=== PATIENT | female | born 1995 | race Caucasian/White ===

== ENCOUNTER 2019-02-27 06:19 | Emergency (ER) | payer BC, MEDICAID, OTHER ==
[~2019-02-27] VITALS: Ht 160 cm; Wt 56.0 kg
--- NOTE | 2019-02-27 07:36 | NUR ---
PT WAS ANSWERING QUESTIONS AND FOLLOWING COMMANDS UPON ARRIVAL, PT NOW HAS EYES CLOSED AND IS NOT ANSWERING QUESTIONS BUT DID ALLOW LABS TO BE DRAWN PER ORDERS, SO CONTINUES TO BE AT BEDSIDE PT IS IN CUSTODY.
[2019-02-27 07:48] LABS: BASOPHILS % (AUTO) 0.4 % (0-1); EOSINOPHILS % (AUTO) 0.2 % (0-6); HEMATOCRIT 40.9 % (35.0-45.0); HEMOGLOBIN 13.9 g/dl (12.0-16.0); LYMPHOCYTES # (AUTO) 0.8 X10'3 (1.1-4.8); LYMPHOCYTES % (AUTO) 6.6 % (21-51); MEAN CORPUSCULAR HEMOGLOBIN 30.8 PG (27.0-31.0); MEAN CORPUSCULAR HGB CONC 34.1 g/dL (33.0-36.5); MEAN CORPUSCULAR VOLUME 90.3 FL (78-98); MEAN PLATELET VOLUME 7.2 FL (7.4-10.4); MONOCYTES # (AUTO) 0.8 X10'3 (0-0.9); MONOCYTES % (AUTO) 6.3 % (2-12); NEUTROPHILS # (AUTO) 10.7 X10'3 (1.8-7.7); NEUTROPHILS % (AUTO) 86.5 % (42-75); PLATELET COUNT 411 X10'3 (140-440); RED BLOOD COUNT 4.53 X10'6 (4.20-5.60); WHITE BLOOD COUNT 12.4 X10'3 (4.5-11.0)
[2019-02-27 08:01] LABS: ALANINE AMINOTRANSFERASE 22 U/L (12-78); ALBUMIN 4.9 G/DL (3.4-5.0); ALBUMIN/GLOBULIN RATIO 1.4 (1.1-1.5); ALKALINE PHOSPHATASE 89 IU/L (46-116); ANION GAP 16 (8-16); ASPARTATE AMINO TRANSFERASE 17 U/L (10-37); BILIRUBIN,TOTAL 0.9 MG/DL (0.1-1.0); BLOOD UREA NITROGEN 10 MG/DL (7-18); BUN/CREATININE RATIO 17.5 (6.6-38.0); CALCIUM 9.9 MG/DL (8.5-10.1); CHLORIDE 105 MMOL/L (99-107); CREATININE 0.57 MG/DL (0.40-0.90); GLUCOSE 96 MG/DL (70-104); POTASSIUM 3.2 MMOL/L (3.5-5.1); SODIUM 142 MMOL/L (135-145); TOTAL CARBON DIOXIDE 21.4 MMOL/L (24-32); TOTAL PROTEIN 8.4 G/DL (6.4-8.2); eGFR > 90 ML/MIN
[2019-02-27 08:10] LABS: ETHANOL < 0.010 GM/DL (0.0-0.010)
--- NOTE | 2019-02-27 08:30 | NUR ---
PT IS NOW AWAKE WITH EYE WIDE OPEN, PT IS ANSWERING QUESTIONS BUT APPEARS VERY ANXIOUS AND PARANOID, PT STATES HAS TAKEN PSYCH MEDS IN THE PAST BUT NOT CURRENTLY PT STATED SHE HAS TAKEN HALDOL IN THE PAST, PT ALSO REPORTS TRAZADONE, TRILIPTAL, LATUDA, PT STATES HER FAMILY MEMBER'S NAME IS LAKEJESSIE WALKER AND PT STATED PH# [phone] PT WAS UNABLE TO GIVE CORRECT PHONE NUMBER, CALLED CONTACT NIVIA HOYT [phone] LEFT MESSAGE TO SEE IF THIS PERSON IS FAMILY OR FRIEND AND MIGHT BE ABLE TO PROVIDE MEDICAL HISTORY INFORMATION.
--- NOTE | 2019-02-27 08:51 | NUR ---
Security walked pt. to bathroom for urine sample. Pt provided urine and sample sent down to lab.
[2019-02-27 09:05] LABS: URINE HCG NEGATIVE (NEG)
[2019-02-27 09:18] LABS: URINE AMPHETAMINE SCREEN NEGATIVE (Neg); URINE BARBITUATE SCREEN NEGATIVE (Neg); URINE BENZODIAZEPINES SCREEN NEGATIVE (Neg); URINE CANNABINOID SCREEN POSITIVE (Neg); URINE COCAINE SCREEN NEGATIVE (Neg); URINE METHADONE SCREEN NEGATIVE (Neg); URINE OPIATE SCREEN NEGATIVE (Neg); URINE PHENCYCLIDINE SCREEN NEGATIVE (Neg)
[2019-02-27] MEDS ORDERED: HALO1TAB PO (09:50)
--- NOTE | 2019-02-27 09:53 | NUR ---
PT MOTHER NIVIA CALLED BACK STATES PT IS SEEN AT [facility] BY ELGIN PEARL [phone], CALLED SPOKE WITH RAMOS CAUSTICISER PT TAKING HALDOL 1 MG BID, LAST OFFICE VISIT 11/2018. PT HAS BEEN TAKING HALDOL SINCE 08/2018, PT HAS HX OF 5150 IN 2017 AND HX PSYCHOTIC EPISODES WHEN OFF OF MEDICATIONS, PT MOTHER STATES PT IS NURSING HER 6-7 MONTH OLD BABY, PT HAS PREVIOUSLY TAKEN LATUDA AND TRAZADONE BUT PER MED FISCAL CLERK WAS NOT PRESCRIBED EITHER MED IN NOV 2018 VISIT. UPDATED MED REC PRINTED AND INFORMED DR NAVA OF UPDATES.
[2019-02-27] MEDS ORDERED: TETanus/Pertussis (Acell)/Diphther VAC/PF (Tdap-Adult) 0.5ml syringe IM ONE (10:00)
--- NOTE | 2019-02-27 10:12 | NUR ---
DR NAVA DOES NOT WANT TO START HALDOL AT THIS TIME PT HAS, BRANDY DEFERS TO HAVE PT EVALUATED BY DR BUI AND PARK WITH [facility] TO EVALUATE AND MAKE MEDICATION RECOMMENDATIONS.
[2019-02-27] MEDS ORDERED: haloperidol 5mg tablet PO ONE (10:35)
[2019-02-27 11:11] VITALS: BP 100/70
== END 2019-02-27 11:33 ==
LOC: EEVIPCON 06:19 → ER 06:19
DX: S00.91XA Abrasion of unspecified part of head, initial encounter (principal); F31.9 Bipolar disorder, unspecified; W18.30XA Fall on same level, unspecified, initial encounter; Y93.89 Activity, other specified; Y92.89 Other specified places as the place of occurrence of the external cause; Y99.8 Other external cause status
CPT/HCPCS: 36415; 70450; 80053; 80305; 80320; 81025; 84443; 85025; 90471; 90715; 99284

== ENCOUNTER 2019-04-11 15:03 | Emergency (ER) | payer MEDICAID ==
[~2019-04-11] VITALS: Ht 170.2 cm; Wt 60.0 kg
[~2019-04-11 15:03] MED LIST: HALO1TAB PO
[2019-04-11 15:17] VITALS: BP 117/55
[2019-04-11] MEDS ORDERED: HALO1TAB PO (15:48)
== END 2019-04-11 16:02 | disposition home or self-care (01) ==
LOC: ER 15:03
DX: F20.9 Schizophrenia, unspecified (principal); Z76.0 Encounter for issue of repeat prescription; F17.200 Nicotine dependence, unspecified, uncomplicated; Z79.899 Other long term (current) drug therapy
CPT/HCPCS: 99281; 99283

== ENCOUNTER 2020-06-19 20:03 | Emergency (ER) | payer MEDICAID ==
[~2020-06-19] VITALS: Ht 160 cm; Wt 69.2 kg
[2020-06-19 20:06] VITALS: BP 113/43
--- NOTE | 2020-06-19 20:56 | NUR ---
Left ear flushed w/ approx. 200 ml warm water with syringe. Pt stated that her hear felt better after flushing.
[2020-06-19] MEDS ORDERED: NEOM10DR45 LEFT EAR (20:57)
== END 2020-06-19 21:10 | disposition home or self-care (01) ==
LOC: ER 20:04
DX: H60.92 Unspecified otitis externa, left ear (principal); H61.22 Impacted cerumen, left ear; Z79.899 Other long term (current) drug therapy; Z79.2 Long term (current) use of antibiotics
CPT/HCPCS: 99283

== ENCOUNTER 2020-09-02 11:22 | Emergency (ER) | payer MEDICAID ==
[~2020-09-02] VITALS: Ht 160 cm; Wt 65.3 kg
[2020-09-02] MEDS ORDERED: ondansetron 4mg rapidly disintigrating tab PO ONE (13:40)
[2020-09-02 14:07] LABS: BASOPHILS # (AUTO) 0.1 X10'3 (0-0.2); BASOPHILS % (AUTO) 0.7 % (0-1); EOSINOPHILS # (AUTO) 0.2 X10'3 (0-0.9); EOSINOPHILS % (AUTO) 2.4 % (0-6); HEMATOCRIT 41.1 % (35.0-45.0); HEMOGLOBIN 13.8 g/dl (12.0-16.0); LYMPHOCYTES # (AUTO) 1.8 X10'3 (1.1-4.8); LYMPHOCYTES % (AUTO) 21.9 % (21-51); MEAN CORPUSCULAR HEMOGLOBIN 30.3 PG (27.0-31.0); MEAN CORPUSCULAR HGB CONC 33.5 g/dL (33.0-36.5); MEAN CORPUSCULAR VOLUME 90.5 FL (78-98); MEAN PLATELET VOLUME 7.2 FL (7.4-10.4); MONOCYTES # (AUTO) 0.6 X10'3 (0-0.9); MONOCYTES % (AUTO) 6.7 % (2-12); NEUTROPHILS # (AUTO) 5.7 X10'3 (1.8-7.7); NEUTROPHILS % (AUTO) 68.3 % (42-75); PLATELET COUNT 335 X10'3 (140-440); RED BLOOD COUNT 4.54 X10'6 (4.20-5.60); RED CELL DISTRIBUTION WIDTH 12.8 % (11.5-14.5); WHITE BLOOD COUNT 8.3 X10'3 (4.5-11.0)
[2020-09-02 14:20] LABS: ANION GAP 8 (8-16); BLOOD UREA NITROGEN 10 MG/DL (7-18); BUN/CREATININE RATIO 14.7 (6.6-38.0); CHLORIDE 104 MMOL/L (99-107); CREATININE 0.68 MG/DL (0.40-0.90); GLUCOSE 86 MG/DL (70-104); POTASSIUM 3.8 MMOL/L (3.5-5.1); SODIUM 138 MMOL/L (135-145); TOTAL CARBON DIOXIDE 25.8 MMOL/L (24-32)
[2020-09-02 14:21] LABS: ALANINE AMINOTRANSFERASE 43 U/L (12-78); ALBUMIN 4.2 G/DL (3.4-5.0); ALBUMIN/GLOBULIN RATIO 1.1 (1.1-1.5); ALKALINE PHOSPHATASE 70 IU/L (46-116); ASPARTATE AMINO TRANSFERASE 18 U/L (10-37); BILIRUBIN,TOTAL 0.5 MG/DL (0.1-1.0); CALCIUM 8.8 MG/DL (8.5-10.1); LIPASE 192 U/L (73-393); TOTAL PROTEIN 7.9 G/DL (6.4-8.2); eGFR > 90 ML/MIN
[2020-09-02 14:38] LABS: HCG SERUM QL NEGATIVE
[2020-09-02] MEDS ORDERED: PANT-47 PO (14:41)
[2020-09-02 15:06] LABS: OCCULT BLOOD STOOL NEGATIVE (Neg)
[2020-09-02 16:12] VITALS: BP 117/79
== END 2020-09-02 14:55 | disposition home or self-care (01) ==
LOC: ER 11:23
DX: K92.1 Melena (principal); R11.10 Vomiting, unspecified; F17.200 Nicotine dependence, unspecified, uncomplicated; Z79.899 Other long term (current) drug therapy
CPT/HCPCS: 36415; 80053; 82272; 83690; 84703; 85025; 99283

== ENCOUNTER 2021-12-09 10:56 | Emergency (ER) | payer MEDICAID ==
[~2021-12-09] VITALS: Ht 160 cm; Wt 59.0 kg
[~2021-12-09 10:56] MED LIST changes: +PANT-47 PO
[2021-12-09 11:05] VITALS: BP 133/75
[2021-12-09] MEDS ORDERED: LIDO700A32 TOP (11:28)
[2021-12-09] MEDS ORDERED: NAPR-56 PO (11:28)
== END 2021-12-09 11:41 | disposition home or self-care (01) ==
LOC: ER 10:57
DX: R07.81 Pleurodynia (principal); Z79.899 Other long term (current) drug therapy
CPT/HCPCS: 99282

== ENCOUNTER 2023-04-25 10:05 | Outpatient (CLI) | payer MEDICAID ==
[~2023-04-25 10:05] MED LIST changes: +LIDO700A32 TOP
== END 2023-04-25 23:59 | disposition home or self-care (01) ==
LOC: LAB 10:05
PROVIDERS: ATTEND Nurse Practitioner Psychiatric/Mental Health
DX: I51.7 Cardiomegaly (principal); R00.1 Bradycardia, unspecified; Z79.899 Other long term (current) drug therapy
CPT/HCPCS: 93005

== ENCOUNTER 2025-09-11 09:19 | Emergency (ER) | payer MEDICAID ==
[~2025-09-11] VITALS: Ht 160 cm; Wt 72.7 kg
[~2025-09-11 09:19] MED LIST changes: +LIDO-52 TOP; -LIDO700A32 TOP
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
[2025-09-11] MEDS: OLANZapine **IM** 10 mg inj. IM ONE (10:28)
[2025-09-11 12:01] VITALS: BP 103/54; PULSE 59; RESP 16; TEMP 98.2; O2SAT 97
== END 2025-09-11 11:50 | disposition home or self-care (01) ==
LOC: ER 09:20
DX: S06.0X0A Concussion without loss of consciousness, initial encounter (principal); Z91.040 Latex allergy status; V49.9XXA Car occupant (driver) (passenger) injured in unspecified traffic accident, initial encounter; Y93.89 Activity, other specified; Y92.89 Other specified places as the place of occurrence of the external cause; Y99.8 Other external cause status
CPT/HCPCS: 96372; 99283; J3490